=== PATIENT | male | born 1935 | race Caucasian/White ===

== ENCOUNTER 2017-11-13 16:51 | Emergency (ER) | payer MEDICARE ==
[~2017-11-13] VITALS: Ht 167.6 cm; Wt 65.9 kg
[2017-11-13] MEDS ORDERED: ENAL20TA PO (17:09)
[2017-11-13] MEDS ORDERED: SIMV40TA3 PO (17:09)
[2017-11-13] MEDS ORDERED: AMLO5TAB2 PO (17:09)
[2017-11-13] MEDS ORDERED: LUTE20TA PO (17:09)
[2017-11-13] MEDS ORDERED: ASPI-496 PO (17:09)
[2017-11-13] MEDS ORDERED: SODIUM CHLORIDE FLUSH 10ML SYR IVF ONE ×2 (17:30→18:30)
[2017-11-13 17:31] LABS: BASOPHILS # (AUTO) 0.05 x10^3/uL (0-0.1); BASOPHILS % (AUTO) 0 % (0-1); EOSINOPHILS # (AUTO) 0.26 x10^3/uL (0-0.4); EOSINOPHILS % (AUTO) 2 % (1-7); LYMPHOCYTES # (AUTO) 1.69 x10^3/uL (1-3.4); LYMPHOCYTES % (AUTO) 13 % (22-44); MD NO; MEAN CORPUSCULAR HEMOGLOBIN 32.2 pg (27.5-34.5); MEAN CORPUSCULAR VOLUME 94.7 fL (81-97); MEAN PLATELET VOLUME 8.6 fL (7.4-10.4); MONOCYTES # (AUTO) 0.91 x10^3/uL (0.2-0.8); MONOCYTES % (AUTO) 7 % (2-9); NEUTROPHILS # (AUTO) 10.22 x10^3/uL (1.8-6.8); NEUTROPHILS % (AUTO) 78 % (42-75); PLATELET COUNT 272 x10^3/uL (130-400); RED BLOOD COUNT 4.56 x10^6/uL (4.38-5.82); RED CELL DISTRIBUTION WIDTH 12.5 % (9.4-14.8)
[2017-11-13 17:39] LABS: ALANINE AMINOTRANSFERASE 17 U/L (12-78); ALBUMIN 3.7 g/dL (3.4-5.0); ANION GAP 9 mmol/L (5-15); CALCIUM 8.9 mg/dL (8.5-10.1); CHLORIDE 110 mmol/L (98-107); CREATININE 1.79 mg/dL (0.7-1.3)
[2017-11-13 17:43] LABS: ALKALINE PHOSPHATASE 80 U/L (45-117); BILIRUBIN,TOTAL 0.5 mg/dL (0.2-1.0); TOTAL PROTEIN 8.2 g/dL (6.4-8.2); TROPONIN I < 0.015 ng/mL (0.000-0.045)
[2017-11-13] MEDS ORDERED: SODIUM CHLORIDE 0.9% 1,000ML IVBOLUS ONE (18:30)
[2017-11-13 18:35] LABS: MICROSCOPIC NOT IND
[2017-11-13 18:40] LABS: CULTURE INDICATED? NO
[2017-11-13 19:04] VITALS: BP 127/62
== END 2017-11-13 20:00 | disposition home or self-care (01) ==
LOC: ED 17:46
DX: R55 Syncope and collapse (principal); R07.2 Precordial pain; I10 Essential (primary) hypertension; I25.2 Old myocardial infarction; Z95.1 Presence of aortocoronary bypass graft
CPT/HCPCS: 36415; 71046; 80053; 81003; 84484; 85025; 93005; 96360; 99285; J7030

== ENCOUNTER 2019-03-05 16:00 | Emergency (ER) | payer MEDICARE ==
[~2019-03-05] VITALS: Ht 162.6 cm; Wt 65.0 kg
[~2019-03-05 16:00] MED LIST: AMLO-150 PO; ASPI-496 PO; ENAL20TA PO; LUTE20TA PO; SIMV40TA3 PO
--- NOTE | 2019-03-05 17:06 | NUR ---
US AT BS.
[2019-03-05 17:12] LABS: BASOPHILS # (AUTO) 0.01 x10^3/uL (0-0.1); BASOPHILS % (AUTO) 0 % (0-1); EOSINOPHILS # (AUTO) 0.33 x10^3/uL (0-0.4); EOSINOPHILS % (AUTO) 4 % (1-7); LYMPHOCYTES # (AUTO) 1.22 x10^3/uL (1-3.4); LYMPHOCYTES % (AUTO) 16 % (22-44); MD NO; MEAN CORPUSCULAR HEMOGLOBIN 32.7 pg (27.5-34.5); MEAN CORPUSCULAR HGB CONC 33.6 g/dL (33.2-36.2); MEAN CORPUSCULAR VOLUME 97.3 fL (81-97); MEAN PLATELET VOLUME 8.4 fL (7.4-10.4); MONOCYTES # (AUTO) 0.57 x10^3/uL (0.2-0.8); MONOCYTES % (AUTO) 8 % (2-9); NEUTROPHILS % (AUTO) 72 % (42-75); PLATELET COUNT 219 x10^3/uL (130-400); RED BLOOD COUNT 3.81 x10^6/uL (4.38-5.82); RED CELL DISTRIBUTION WIDTH 13.3 % (9.4-14.8)
[2019-03-05 17:20] LABS: ALANINE AMINOTRANSFERASE 17 U/L (12-78); ALBUMIN 3.1 g/dL (3.4-5.0); ANION GAP 8 mmol/L (5-15); CALCIUM 8.7 mg/dL (8.5-10.1); CHLORIDE 118 mmol/L (98-107); CREATININE 1.49 mg/dL (0.7-1.3)
[2019-03-05 17:25] LABS: ALKALINE PHOSPHATASE 69 U/L (45-117); BILIRUBIN,TOTAL 0.2 mg/dL (0.2-1.0)
--- NOTE | 2019-03-05 17:37 | NUR ---
RV'WD POC WITH PT. AWAITING ALL LAB RESULTS. AT BS.
[2019-03-05 17:41] LABS: INTERNATIONAL NORMALIZED RATIO 0.94 (0.93-1.1); PROTHROMBIN TIME 9.9 Seconds (9.6-11.5)
[2019-03-05] MEDS ORDERED: ROSU20TA2 PO (17:50)
[2019-03-05] MEDS ORDERED: CHLO50TA PO (17:50)
[2019-03-05 18:21] VITALS: BP 128/63
--- NOTE | 2019-03-05 18:22 | NUR ---
D/C INSTRUCTIONS & F/U APPT RV'WD WITH PT, HE VERBALIZES UNDERSTANDING. INSTRUCTED PT TO RETURN TO ED IF SYMPTOMS NOT IMPROVING. PT AMBULATED OUT OF ED WITH WITHOUT DIFFICULTY.
== END 2019-03-05 18:23 | disposition home or self-care (01) ==
LOC: ED 17:32
DX: I87.2 Venous insufficiency (chronic) (peripheral) (principal); R60.9 Edema, unspecified; I11.9 Hypertensive heart disease without heart failure; I25.2 Old myocardial infarction; Z87.891 Personal history of nicotine dependence
CPT/HCPCS: 36415; 80053; 83880; 85025; 85610; 85730; 99284

== ENCOUNTER → 2019-10-10 | Outpatient (CLI) | payer MEDICARE ==
[~2019-10-10] MED LIST changes: +CHLO50TA PO; +LEVE500T53 PO; +LUTE20CA2 PO; +ROSU20TA2 PO; +SIMV40TA20 PO; -SIMV40TA3 PO
== END | disposition home or self-care (01) ==
LOC: CFH 08:18
PROVIDERS: ATTEND Physician Assistant Surgical
DX: I62.00 Nontraumatic subdural hemorrhage, unspecified (principal)
CPT/HCPCS: 70450

== ENCOUNTER 2020-01-22 09:40 | Inpatient (IN) | payer MEDICARE ==
[~2020-01-22] VITALS: Ht 167.6 cm; Wt 67.4 kg
[2020-01-22] MEDS ORDERED: ASCO10004 PO (10:04)
[2020-01-22] MEDS ORDERED: TUMERIC (10:06)
[2020-01-22] MEDS ORDERED: GINGER ROOT (10:06)
[2020-01-22] MEDS ORDERED: ginger root (10:06)
--- NOTE | 2020-01-22 10:13 | NUR ---
DR ARDON BS FOR EXAM. PT A&OX4, RESP EVEN & UNLABORED, SPEECH CLEAR, SKIN WNL. PT STATES HIS BP "SHOT UP" THIS MORNING, EXPERIENCED DIZZINESS, FELT UNSTEADY ON FEET. DENIES CP. REPORTS "STOMACH PROBLEM FOR SEVERAL WEEKS" "AFTER I EAT I FEEL FOOD UP IN MY THROAT". DENIES ABD PAIN. NAUSEA YESTERDAY; NO VOMITING; NO ABD PAIN. DENIES DIARRHEA, CONSTIPATION, FALLING.
--- NOTE | 2020-01-22 10:52 | NUR ---
PT MEDICATED PER EMAR. AWAITING LAB DRAW. MONITORING CONITINUING. PT RESTING QUIETLY, SIDE RAIL UP X1, CALL LIGHT W/IN REACH, SISTER IN ROOM.
[2020-01-22 11:36] LABS: ALBUMIN 3.6 g/dL (3.4-5.0); ANION GAP 11 mmol/L (5-15); BASOPHILS # (AUTO) 0.02 x10^3/uL (0-0.1); BASOPHILS % (AUTO) 0 % (0-1); CALCIUM 9.3 mg/dL (8.5-10.1); CHLORIDE 107 mmol/L (98-107); EOSINOPHILS # (AUTO) 0.13 x10^3/uL (0-0.4); EOSINOPHILS % (AUTO) 2 % (1-7); LYMPHOCYTES # (AUTO) 1.05 x10^3/uL (1-3.4); LYMPHOCYTES % (AUTO) 14 % (22-44); MD NO; MEAN CORPUSCULAR HEMOGLOBIN 30.7 pg (27.5-34.5); MEAN PLATELET VOLUME 8.9 fL (7.4-10.4); MONOCYTES # (AUTO) 0.59 x10^3/uL (0.2-0.8); MONOCYTES % (AUTO) 8 % (2-9); NEUTROPHILS # (AUTO) 5.59 x10^3/uL (1.8-6.8); NEUTROPHILS % (AUTO) 76 % (42-75); PLATELET COUNT 190 x10^3/uL (130-400); RED BLOOD COUNT 4.91 x10^6/uL (4.38-5.82); RED CELL DISTRIBUTION WIDTH 12.4 % (9.4-14.8)
[2020-01-22 11:43] LABS: ALANINE AMINOTRANSFERASE 19 U/L (12-78); ALKALINE PHOSPHATASE 79 U/L (45-117); BILIRUBIN,TOTAL 0.9 mg/dL (0.2-1.0); CREATININE 1.24 mg/dL (0.7-1.3); TOTAL PROTEIN 7.6 g/dL (6.4-8.2); TROPONIN I < 0.015 ng/mL (0.000-0.045)
--- NOTE | 2020-01-22 12:14 | NUR ---
PT RESTING QUIETLY; AWAITING TEST RESULTS & DISPOSITION
[2020-01-22] MEDS ORDERED: ASPIRIN 81 MG TABLET CHEW ONE (13:21)
[2020-01-22] MEDS: ASPIRIN 81 MG TABLET CHEW PO ONE ×2 (13:23→13:30)
--- NOTE | 2020-01-22 13:29 | NUR ---
PT QUESTIONING ASA. STATES HIS PCP TOLD HIM NOT TO TAKE ASPIRIN BECAUSE OF THE "BROKEN BLOOD VESSEL" IN HIS HEAD. Addendum: 01/22/[address] ARDON WILL BE CONSULTED.
--- NOTE | 2020-01-22 13:35 | NUR ---
VO LAW: HOLD ASA
--- NOTE | 2020-01-22 13:47 | NUR ---
PT REPORT TO TERRANCE DEJESUS FOR ROOM 494-1
[2020-01-22] MEDS ORDERED: hydrALAzine 20 MG/ML, 1ML IVPush PRN (16:00)
[2020-01-22] MEDS ORDERED: ONDANSETRON ODT 4 MG PO PRN (16:00)
[2020-01-22] MEDS ORDERED: GADOTERATE 7.5 MMOL/15 ML SYR ONE (16:48)
[2020-01-22 18:09] LABS: TROPONIN I < 0.015 ng/mL (0.000-0.045)
[2020-01-22 19:03] VITALS: BP 176/82
[2020-01-22] MEDS: ENALAPRIL 20MG TABLET PO SCH (20:25)
[2020-01-22] MEDS ORDERED: SIMVASTATIN 40 MG TABLET PO SCH (21:00)
[2020-01-22 21:30] VITALS: BP 151/80
[2020-01-22 21:33] VITALS: BP 152/82
[2020-01-22 21:38] VITALS: BP 140/88
[2020-01-22 22:39] LABS: TROPONIN I < 0.015 ng/mL (0.000-0.045)
[2020-01-23 02:00] VITALS: BP 158/86
[2020-01-23 05:29] LABS: ALBUMIN 3.3 g/dL (3.4-5.0); ANION GAP 7 mmol/L (5-15); CALCIUM 8.8 mg/dL (8.5-10.1); CHLORIDE 108 mmol/L (98-107)
[2020-01-23 05:32] LABS: BASOPHILS # (AUTO) 0.05 x10^3/uL (0-0.1); BASOPHILS % (AUTO) 1 % (0-1); EOSINOPHILS % (AUTO) 3 % (1-7); LYMPHOCYTES % (AUTO) 20 % (22-44); MD NO; MEAN CORPUSCULAR HEMOGLOBIN 31.4 pg (27.5-34.5); MEAN CORPUSCULAR VOLUME 92.3 fL (81-97); MEAN PLATELET VOLUME 8.8 fL (7.4-10.4); MONOCYTES # (AUTO) 0.98 x10^3/uL (0.2-0.8); MONOCYTES % (AUTO) 11 % (2-9); NEUTROPHILS # (AUTO) 5.73 x10^3/uL (1.8-6.8); NEUTROPHILS % (AUTO) 65 % (42-75); PLATELET COUNT 183 x10^3/uL (130-400); RED BLOOD COUNT 4.91 x10^6/uL (4.38-5.82); RED CELL DISTRIBUTION WIDTH 12.6 % (9.4-14.8)
[2020-01-23 05:34] LABS: ALANINE AMINOTRANSFERASE 15 U/L (12-78); ALKALINE PHOSPHATASE 76 U/L (45-117); BILIRUBIN,TOTAL 0.9 mg/dL (0.2-1.0); CHOL/HDL RATIO 3.4; CHOLESTEROL, TOTAL 156 mg/dL (140-239); CREATININE 1.35 mg/dL (0.7-1.3); HDL CHOL % 29 % (26-37); HDL CHOLESTEROL (DIRECT) 46 mg/dL (40-60); LDL CHOLESTEROL,CALCULATED 76 mg/dL (54-169); LDL/HDL RATIO 1.7 (0.5-3.0); TOTAL PROTEIN 7.1 g/dL (6.4-8.2); TRIGLYCERIDES 171 mg/dL (50-200); VLDL CHOLESTEROL 34 mg/dL (0-25)
[2020-01-23 07:00] VITALS: BP 156/53
[2020-01-23 07:02] VITALS: BP 167/84
[2020-01-23 07:04] VITALS: BP 169/91
[2020-01-23] MEDS: ENALAPRIL 20MG TABLET PO SCH (07:55)
[2020-01-23] MEDS ORDERED: AMLODIPINE 5 MG TABLET PO SCH (11:30)
[2020-01-23 12:24] VITALS: BP 149/85
[2020-01-23] MEDS ORDERED: AMLO-150 PO (16:06)
== END 2020-01-23 16:56 | disposition home or self-care (01) | DRG 74 ==
LOC: ED 10:45 → EDIP 13:11 → 4EST 14:14
PROVIDERS: ADMIT Hospitalist; ATTEND Hospitalist
DX: G90.8 Other disorders of autonomic nervous system (principal); J98.11 Atelectasis; I10 Essential (primary) hypertension; E78.5 Hyperlipidemia, unspecified; I25.10 Atherosclerotic heart disease of native coronary artery without angina pectoris; I44.7 Left bundle-branch block, unspecified; I44.0 Atrioventricular block, first degree; K21.9 Gastro-esophageal reflux disease without esophagitis; Z87.891 Personal history of nicotine dependence; Z95.1 Presence of aortocoronary bypass graft
CPT/HCPCS: 36415; 70450; 70553; 71045; 80053; 80061; 83880; 84443; 84484; 85025; 93005; 93306; 93356; 93880; G0378; A9575

== ENCOUNTER → 2020-10-23 | Outpatient (CLI) | payer MEDICARE ==
[~2020-10-23] MED LIST changes: +ASCO100018 PO; -ENAL20TA PO; +ENAL20TA9 PO; +GINGER ROOT; +TUMERIC; +ginger root
[2020-10-23 11:15] LABS: LDL/HDL RATIO 1.5 (0.5-3.0)
== END | disposition home or self-care (01) ==
LOC: LAB 10:46
PROVIDERS: ATTEND Internal Medicine Cardiovascular Disease
DX: E78.00 Pure hypercholesterolemia, unspecified (principal)
CPT/HCPCS: 36415; 80061

== ENCOUNTER → 2020-11-15 | Outpatient (CLI) | payer MEDICARE ==
[2020-11-15 12:11] LABS: ALANINE AMINOTRANSFERASE 18 U/L (12-78); ALBUMIN 3.8 g/dL (3.4-5.0); ANION GAP 4 mmol/L (5-15); CALCIUM 9.5 mg/dL (8.5-10.1); CHLORIDE 110 mmol/L (98-107); CHOLESTEROL, TOTAL 160 mg/dL (140-239); CREATININE 1.48 mg/dL (0.7-1.3); TRIGLYCERIDES 162 mg/dL (50-200); VLDL CHOLESTEROL 32 mg/dL (0-25)
[2020-11-15 12:15] LABS: ALKALINE PHOSPHATASE 73 U/L (45-117); HDL CHOLESTEROL (DIRECT) 57 mg/dL (40-60); TOTAL PROTEIN 7.5 g/dL (6.4-8.2)
[2020-11-15 12:33] LABS: CHOL/HDL RATIO 2.8; HDL CHOL % 36 % (26-37); LDL CHOLESTEROL,CALCULATED 71 mg/dL (54-169); LDL/HDL RATIO 1.2 (0.5-3.0)
== END | disposition home or self-care (01) ==
LOC: LAB 11:33
PROVIDERS: ATTEND Family Medicine
DX: I10 Essential (primary) hypertension (principal)
CPT/HCPCS: 36415; 80053; 80061